=== PATIENT | female | born 1975 | race Caucasian/White ===

== ENCOUNTER 2017-08-27 06:08 | Day surgery (SDC) | payer OTHER ==
[~2017-08-27] VITALS: Ht 170.2 cm; Wt 64.0 kg
[~2017-08-27 06:08] MED LIST: ACET120S PR; ASCO500 PO; BIOTIN-D1 GM PO; BIOTIN2500 MCG PO; CHOL10002 PO; COSENTYX P150 MG/11 SC; CYCL10 PO; ERGO400 PO; ETAN50I; IBUP400 PO; MELO7.5 PO; MSM1000 MG PO; Multivitamin1 EAC1 PO; Omega 3 Fish O1 EACH PO; PROBIOTIC1 EAC1 PO; TOPI50 PO; VALA500 PO; VITAMIN C PO; XYZAL5 MG PO; ZINC PO
[2017-08-27] MEDS ORDERED: MELO7.5 PO (07:07)
[2017-08-27] MEDS ORDERED: CLON1 PO (07:08)
[2017-08-27] MEDS ORDERED: CYCL10 PO (07:09)
[2017-08-27] MEDS ORDERED: CRANBERRY500 M1 PO (07:09)
[2017-08-27 14:56] LABS: BASOPHILS ABSOLUTE AUTO 0.01 K/mm3 (0.00-0.23); BASOPHILS PERCENT AUTO 0 % (0-2); EOSINOPHILS PERCENT AUTO 0 % (0-6); Hematocrit 34.6 % (33.0-51.0); Hemoglobin 11.8 g/dL (11.5-16.0); IMMATURE GRAN ABSOLUTE AUTO 0.03 K/mm3 (0.00-0.10); IMMATURE GRAN PERCENT AUTO 0 % (0-1); LYMPHOCYTES ABSOLUTE AUTO 0.44 K/mm3 (0.84-5.20); LYMPHOCYTES PERCENT AUTO 4 % (21-46); MONOCYTES ABSOLUTE AUTO 0.35 K/mm3 (0.16-1.47); MONOCYTES PERCENT AUTO 3 % (4-13); Mean Corpuscular HGB 32.9 pg (26.0-34.0); Mean Corpuscular HGB Conc 34.1 g/dL (31.5-36.5); Mean Corpuscular Volume 96 fL (80-100); Mean Platelet Volume 9.3 fL (9.1-12.4); NEUTROPHILS ABSOLUTE AUTO 10.61 K/mm3 (1.96-9.15); NEUTROPHILS PERCENT AUTO 93 % (41-73); Platelet Count 151 K/mm3 (150-400); RDW Coefficient Variation 11.7 % (11.7-14.2); RDW Standard Deviation 41.3 fL (35.1-46.3); Red Blood Cell Count 3.59 M/mm3 (3.80-5.20); White Blood Cell Count 11.44 K/mm3 (4.00-11.30)
[2017-08-28 05:01] LABS: BASOPHILS ABSOLUTE AUTO 0.02 K/mm3 (0.00-0.23); BASOPHILS PERCENT AUTO 0 % (0-2); EOSINOPHILS ABSOLUTE AUTO 0.01 K/mm3 (0.00-0.68); EOSINOPHILS PERCENT AUTO 0 % (0-6); Hematocrit 31.8 % (33.0-51.0); Hemoglobin 10.8 g/dL (11.5-16.0); IMMATURE GRAN ABSOLUTE AUTO 0.05 K/mm3 (0.00-0.10); IMMATURE GRAN PERCENT AUTO 0 % (0-1); LYMPHOCYTES ABSOLUTE AUTO 1.66 K/mm3 (0.84-5.20); LYMPHOCYTES PERCENT AUTO 13 % (21-46); MONOCYTES ABSOLUTE AUTO 0.93 K/mm3 (0.16-1.47); MONOCYTES PERCENT AUTO 7 % (4-13); Mean Corpuscular HGB 32.4 pg (26.0-34.0); Mean Corpuscular Volume 96 fL (80-100); Mean Platelet Volume 9.3 fL (9.1-12.4); NEUTROPHILS ABSOLUTE AUTO 10.08 K/mm3 (1.96-9.15); NEUTROPHILS PERCENT AUTO 79 % (41-73); Platelet Count 139 K/mm3 (150-400); RDW Coefficient Variation 11.8 % (11.7-14.2); RDW Standard Deviation 40.7 fL (35.1-46.3); Red Blood Cell Count 3.33 M/mm3 (3.80-5.20); White Blood Cell Count 12.75 K/mm3 (4.00-11.30)
[2017-08-28] MEDS ORDERED: HYDR1TAB94 PO (11:23)
[2017-08-28] MEDS ORDERED: ONDA4ODT MM (11:24)
== END 2017-08-28 11:53 | disposition home or self-care (01) ==
LOC: ORSCMMR 06:08 → SURS 12:27
PROVIDERS: Obstetrics & Gynecology Gynecology
PROC: 0UT9FZZ Resection of Uterus, Via Natural or Artificial Opening With Percutaneous Endoscopic Assistance (ICD-10-PCS; principal; 2017-08-27 07:30)
PROC: 0UT7FZZ Resection of Bilateral Fallopian Tubes, Via Natural or Artificial Opening With Percutaneous Endoscopic Assistance (ICD-10-PCS; principal; 2017-08-27 07:30)
DX: N92.0 Excessive and frequent menstruation with regular cycle (principal); N94.6 Dysmenorrhea, unspecified; N94.12 Deep dyspareunia; N80.0 Endometriosis of uterus; N80.2 Endometriosis of fallopian tube; D25.9 Leiomyoma of uterus, unspecified; J45.909 Unspecified asthma, uncomplicated; F17.210 Nicotine dependence, cigarettes, uncomplicated; Z79.899 Other long term (current) drug therapy
CPT/HCPCS: 36415; 85025; 88307; J1100; J1580; J1885; J2250; J2270; J2405; J2710; J2765; J3010; J7120

== ENCOUNTER → 2017-09-02 | Outpatient (CLI) | payer OTHER ==
[~2017-09-02] MED LIST changes: +CLON1 PO; +CRANBERRY500 M1 PO; +HYDR1TAB94 PO; +ONDA4ODT MM
[2017-09-02 11:48] LABS: BASOPHILS ABSOLUTE AUTO 0.02 K/mm3 (0.00-0.23); BASOPHILS PERCENT AUTO 0 % (0-2); EOSINOPHILS ABSOLUTE AUTO 0.21 K/mm3 (0.00-0.68); EOSINOPHILS PERCENT AUTO 2 % (0-6); Hematocrit 33.5 % (33.0-51.0); IMMATURE GRAN ABSOLUTE AUTO 0.05 K/mm3 (0.00-0.10); IMMATURE GRAN PERCENT AUTO 1 % (0-1); LYMPHOCYTES ABSOLUTE AUTO 0.82 K/mm3 (0.84-5.20); LYMPHOCYTES PERCENT AUTO 8 % (21-46); MONOCYTES ABSOLUTE AUTO 0.96 K/mm3 (0.16-1.47); MONOCYTES PERCENT AUTO 10 % (4-13); Mean Corpuscular HGB 31.8 pg (26.0-34.0); Mean Corpuscular HGB Conc 32.8 g/dL (31.5-36.5); Mean Corpuscular Volume 97 fL (80-100); Mean Platelet Volume 9.9 fL (9.1-12.4); NEUTROPHILS ABSOLUTE AUTO 8.04 K/mm3 (1.96-9.15); NEUTROPHILS PERCENT AUTO 80 % (41-73); Platelet Count 228 K/mm3 (150-400); RDW Coefficient Variation 11.9 % (11.7-14.2); RDW Standard Deviation 41.4 fL (35.1-46.3); Red Blood Cell Count 3.46 M/mm3 (3.80-5.20)
== END | disposition home or self-care (01) ==
LOC: OLS 10:57
PROVIDERS: Obstetrics & Gynecology Gynecology
DX: N92.1 Excessive and frequent menstruation with irregular cycle (principal)
CPT/HCPCS: 36415; 85025

== ENCOUNTER → 2018-10-14 | Outpatient (CLI) | payer MEDICARE, OTHER ==
[2018-10-18 14:08] LABS: HPV 16 Negative (Negative); HPV 18 Negative (Negative); HPV OTHER HR TYPES Negative (Negative)
== END ==
LOC: LAB SHORT 12:03 → LAB 12:03
PROVIDERS: Nurse Practitioner Women's Health
DX: Z12.72 Encounter for screening for malignant neoplasm of vagina (principal); N89.8 Other specified noninflammatory disorders of vagina; Z91.89 Other specified personal risk factors, not elsewhere classified
CPT/HCPCS: 87070; 87205; 87624; G0123

== ENCOUNTER → 2022-02-11 | Outpatient (CLI) | payer MEDICARE | END | disposition home or self-care (01) | LOC: PLD 07:51 → LAB 07:51 → LAB SHORT 07:51 | DX: D22.5 Melanocytic nevi of trunk (principal) | CPT/HCPCS: 88305 ==

== ENCOUNTER → 2022-02-24 | Outpatient (CLI) | payer MEDICARE ==
[2022-02-25 11:05] LABS: Candida species (DNA Probe) Negative (NEGATIVE); G. vaginalis (DNA Probe) Negative (NEGATIVE); T. vaginalis (DNA Probe) Negative (NEGATIVE)
== END | disposition home or self-care (01) ==
LOC: LAB 18:57 → LAB SHORT 18:57
PROVIDERS: Physician Assistant
DX: N76.0 Acute vaginitis (principal)
CPT/HCPCS: 87480; 87510; 87660

== ENCOUNTER → 2023-05-05 | Outpatient (CLI) | payer MEDICARE, OTHER ==
[~2023-05-05] MED LIST changes: +BACLOFEN5 M1 PO; +LEVOCETIRIZINE D5 MG PO; +PROG100 PO; +SKYRIZI PE150 MG/1 M
[2023-05-07 16:11] LABS: HPV 16 Negative (Negative); HPV 18 Negative (Negative); HPV OTHER HR TYPES Negative (Negative)
== END | disposition home or self-care (01) ==
LOC: LAB 17:56 → LAB SHORT 17:56
PROVIDERS: Family Medicine
DX: Z12.4 Encounter for screening for malignant neoplasm of cervix (principal); B97.7 Papillomavirus as the cause of diseases classified elsewhere
CPT/HCPCS: 87624; G0145

== ENCOUNTER 2025-03-20 08:34 | Day surgery (SDC) | payer OTHER ==
[~2025-03-20] VITALS: Ht 172.7 cm; Wt 63.9 kg
[~2025-03-20 08:34] MED LIST changes: +NS 500 ML IV ONE
[2025-03-20] MEDS ORDERED: NS 500 ML IV ONE (09:03)
[2025-03-20] MEDS ORDERED: Glycopyrrolate 0.2 MG/ML 5ML VIAL ONE (09:07)
[2025-03-20] MEDS ORDERED: Midazolam HCL 1 MG/ML 5MLVIAL ONE (09:07)
[2025-03-20] MEDS ORDERED: Ketamine HCl 100 MG / ML 5ML Vial ONE (09:08)
[2025-03-20] MEDS ORDERED: PROAIR RESPICL90 MCG (09:08)
[2025-03-20] MEDS ORDERED: BUDESONIDE-FO10.2 G3 INH (09:08)
[2025-03-20] MEDS ORDERED: HUMIRA40 MG/0.2 INJ (09:09)
[2025-03-20] MEDS ORDERED: ESTRADIOL1 EAC2 TOP (09:10)
[2025-03-20] MEDS ORDERED: Premarin 225 MG/5 ML IM (09:10)
[2025-03-20] MEDS ORDERED: CeFAZolin Sodium 2,000 MG VIAL ONE (09:22)
[2025-03-20] MEDS ORDERED: Lidocaine 2%-Epineph 1:100000 20 ML MDV INJ ONE (09:46)
[2025-03-20] MEDS ORDERED: Ondansetron HCl 2 MG / ML 2ML Vial ONE (09:51)
--- NOTE | 2025-03-20 09:56 | NUR ---
03/20/25 0956 PATRICIO SORENSON INJECTION TO BE DONE IN OR PER PT REQUEST.
[2025-03-20 10:15] VITALS: BP 115/67
--- NOTE | 2025-03-20 11:24 | NUR ---
03/20/25 Martinez4 Lizz Amato PT HELD IN STEPDOWN, EXTRA SET VS R/T EXTRA MEDS IN OR R/T PT ANXIETY. TOLERATING PO. NO C/O WRIST PAIN. (+) VOID. EDUCATION ON SCOPE PATCH SAFETY AND DISPOSAL PROVDIED.
== END 2025-03-20 10:40 | disposition home or self-care (01) ==
LOC: ORSCSDS 08:34
PROVIDERS: Orthopaedic Surgery
PROC: 0JBG0ZX Excision of Right Lower Arm Subcutaneous Tissue and Fascia, Open Approach, Diagnostic (ICD-10-PCS; principal; 2025-03-20 10:00)
PROC: 01N54ZZ Release Median Nerve, Percutaneous Endoscopic Approach (ICD-10-PCS; principal; 2025-03-20 10:00)
DX: G56.03 Carpal tunnel syndrome, bilateral upper limbs (principal); M06.9 Rheumatoid arthritis, unspecified; L40.50 Arthropathic psoriasis, unspecified; F41.9 Anxiety disorder, unspecified; F31.9 Bipolar disorder, unspecified; E72.12 Methylenetetrahydrofolate reductase deficiency; Z79.899 Other long term (current) drug therapy; Z87.891 Personal history of nicotine dependence; J44.89 Other specified chronic obstructive pulmonary disease
CPT/HCPCS: 88304; 88313; A9270; J0690; J2250; J2405; J2704; J7040

== ENCOUNTER 2025-05-01 07:08 | Day surgery (SDC) | payer OTHER ==
[~2025-05-01] VITALS: Ht 172.7 cm; Wt 63.2 kg
[~2025-05-01 07:08] MED LIST changes: +BUDESONIDE-FO10.2 G3 INH; +ESTRADIOL1 EAC2 TOP; +HUMIRA40 MG/0.2 INJ; -NS 500 ML IV ONE; +PROAIR RESPICL90 MCG; +Premarin 225 MG/5 ML IM
[2025-05-01] MEDS ORDERED: CeFAZolin Sodium 2,000 MG VIAL ONE (07:31)
[2025-05-01] MEDS ORDERED: JUBLIA4 ML (07:47)
[2025-05-01] MEDS ORDERED: Midazolam HCl 1MG / ML 2ML Vial ONE (07:53)
[2025-05-01] MEDS ORDERED: NS 500 ML IV ONE (07:55)
[2025-05-01 07:56] VITALS: BP 130/71
--- NOTE | 2025-05-01 09:33 | NUR ---
05/01/25 0933 Conrado Rodriguez PT VOIDED PRIOR TO D/C. DRESSING RE-WRAPPED, PER PT REQUEST. PT STATED HAND FELT WARM. NO SWELLING OR DISCOLORATION NOTED. CAPILLARY REFILL <1 SECOND. TEMPERATURE FELT NORMAL UPON PALPATION. PT INSTRUCTED TO MONITOR FOR SWELLING, DISCOLORATION, INCREASING NUMBNESS/TONGLING, OR INCREASING PAIN. SHE WAS INSTRUCTED TO CALL DR. LAY IF THESE SYMPTOMS WERE NOTICED, OR IF WARMTH WORSENS OR DOES NOT RESOLVE.
== END 2025-05-01 09:18 | disposition home or self-care (01) ==
LOC: ORSCSDS 07:08
PROVIDERS: Orthopaedic Surgery
PROC: 01N54ZZ Release Median Nerve, Percutaneous Endoscopic Approach (ICD-10-PCS; principal; 2025-05-01 08:30)
DX: G56.02 Carpal tunnel syndrome, left upper limb (principal); J45.909 Unspecified asthma, uncomplicated; J44.9 Chronic obstructive pulmonary disease, unspecified; F31.9 Bipolar disorder, unspecified; M06.80 Other specified rheumatoid arthritis, unspecified site; Z79.899 Other long term (current) drug therapy
CPT/HCPCS: A9270; J0690; J2250; J2704